=== PATIENT | male | born 1970 | race African-American/Black ===

== ENCOUNTER 2019-02-05 11:14 | Outpatient (RCR) | payer BC ==
[~2019-02-05 11:14] MED LIST: AMLODIPINE BESY10 MG PO; CLONIDINE HCL0.1 MG PO; LOSARTAN POTAS100 MG PO; ULTRAM50 MG PO
== END 2019-02-16 ==
LOC: PT 11:14
PROVIDERS: ATTEND Specialist
DX: M25.561 Pain in right knee (principal); S80.01XA Contusion of right knee, initial encounter; M24.661 Ankylosis, right knee; M25.461 Effusion, right knee; M62.81 Muscle weakness (generalized)

== ENCOUNTER 2019-03-14 08:56 | Outpatient (RCR) | payer BC | END 2019-03-18 | LOC: PT 08:56 | PROVIDERS: ATTEND Specialist | DX: S80.01XA Contusion of right knee, initial encounter (principal); M24.661 Ankylosis, right knee; M25.561 Pain in right knee; M62.81 Muscle weakness (generalized) ==

== ENCOUNTER → 2019-04-18 | Outpatient (RCR) | payer BC | LOC: PT 03-20 09:10 | PROVIDERS: ATTEND Specialist | DX: M25.561 Pain in right knee (principal); M25.461 Effusion, right knee; S80.01XA Contusion of right knee, initial encounter; M24.661 Ankylosis, right knee; M62.81 Muscle weakness (generalized) | CPT/HCPCS: 97139 ==

== ENCOUNTER 2019-05-06 10:00 | Outpatient (RCR) | payer BC | END 2019-05-18 | LOC: PT 10:00 | PROVIDERS: ATTEND Specialist | DX: M17.11 Unilateral primary osteoarthritis, right knee (principal); S80.01XA Contusion of right knee, initial encounter; M25.561 Pain in right knee; M25.461 Effusion, right knee; M62.81 Muscle weakness (generalized) | CPT/HCPCS: 97139 ==

== ENCOUNTER 2019-06-13 08:00 | Outpatient (RCR) | payer BC | END 2019-06-18 | LOC: PT 08:00 | PROVIDERS: ATTEND Specialist | DX: M24.661 Ankylosis, right knee (principal); M25.561 Pain in right knee; M25.661 Stiffness of right knee, not elsewhere classified; M62.81 Muscle weakness (generalized); R26.2 Difficulty in walking, not elsewhere classified | CPT/HCPCS: 97139 ==

== ENCOUNTER 2019-06-20 07:00 | Outpatient (RCR) | payer BC | END 2019-07-19 | LOC: PT 07:00 | PROVIDERS: ATTEND Specialist | DX: M24.661 Ankylosis, right knee (principal); M25.561 Pain in right knee; M25.661 Stiffness of right knee, not elsewhere classified; R26.2 Difficulty in walking, not elsewhere classified; M62.81 Muscle weakness (generalized) ==